=== PATIENT | female | born 1990 | race Two or more races ===

== ENCOUNTER 2023-01-21 10:30 | Observation (INO) | payer MEDICAID ==
[~2023-01-21] VITALS: Ht 172.7 cm; Wt 96.6 kg
[2023-01-21] MEDS ORDERED: PREN1TAB71 OR (10:51)
[2023-01-21] MEDS ORDERED: TERBUTALINE SULFATE 1 MG/ML 1ML VIAL SC SCH (11:30)
[2023-01-21] MEDS ORDERED: NITR-87 PO (13:07)
== END 2023-01-21 13:20 | disposition home or self-care (01) ==
LOC: UNDOADMOB 10:30 → LDRP 10:30 → UNDODISOB 13:20
PROVIDERS: ADMIT Obstetrics & Gynecology; ATTEND Obstetrics & Gynecology
DX: O23.43 Unspecified infection of urinary tract in pregnancy, third trimester (principal); O60.03 Preterm labor without delivery, third trimester; O36.8130 Decreased fetal movements, third trimester, not applicable or unspecified; O62.9 Abnormality of forces of labor, unspecified; O26.893 Other specified pregnancy related conditions, third trimester; R10.2 Pelvic and perineal pain; Z3A.36 36 weeks gestation of pregnancy
CPT/HCPCS: 59025; 76818; 81002; 96372; G0378; J3105

== ENCOUNTER 2023-01-30 13:50 | Observation (INO) | payer MEDICAID ==
[~2023-01-30] VITALS: Ht 172.7 cm; Wt 96.6 kg
[~2023-01-30 13:50] MED LIST: NITR-87 PO; PREN1TAB71 OR
== END 2023-01-30 14:53 | disposition home or self-care (01) ==
LOC: LDRP 13:50 → UNDOADMOB 13:50 → LDRP 14:05 → UNDODISOB 14:53
PROVIDERS: ADMIT Obstetrics & Gynecology; ATTEND Obstetrics & Gynecology
DX: O40.3XX0 Polyhydramnios, third trimester, not applicable or unspecified (principal); O36.63X0 Maternal care for excessive fetal growth, third trimester, not applicable or unspecified; Z3A.35 35 weeks gestation of pregnancy
CPT/HCPCS: 59025; 76818; 81002; 94760; G0378

== ENCOUNTER 2023-02-03 13:48 | Observation (INO) | payer MEDICAID ==
[~2023-02-03] VITALS: Ht 172.7 cm; Wt 96.6 kg
== END 2023-02-03 14:50 | disposition home or self-care (01) ==
LOC: LDRP 13:48 → UNDOADMOB 13:48 → LDRP 13:53 → UNDODISOB 14:50
PROVIDERS: ADMIT Obstetrics & Gynecology; ATTEND Obstetrics & Gynecology
DX: O36.63X0 Maternal care for excessive fetal growth, third trimester, not applicable or unspecified (principal); O40.3XX0 Polyhydramnios, third trimester, not applicable or unspecified; O26.893 Other specified pregnancy related conditions, third trimester; R10.30 Lower abdominal pain, unspecified; M54.9 Dorsalgia, unspecified; Z3A.35 35 weeks gestation of pregnancy
CPT/HCPCS: 59025; 76818; 81002; 94760; G0378

== ENCOUNTER 2023-02-06 15:38 | Observation (INO) | payer MEDICAID | END 2023-02-06 17:35 | disposition home or self-care (01) | LOC: LDRP 15:38 | PROVIDERS: ADMIT Obstetrics & Gynecology; ATTEND Obstetrics & Gynecology | DX: O40.3XX0 Polyhydramnios, third trimester, not applicable or unspecified (principal); O36.63X0 Maternal care for excessive fetal growth, third trimester, not applicable or unspecified; Z3A.36 36 weeks gestation of pregnancy | CPT/HCPCS: 59025; 76818; 81002; 94760; G0378 ==

== ENCOUNTER 2023-02-10 13:42 | Observation (INO) | payer MEDICAID ==
[~2023-02-10 13:42] MED LIST changes: -NITR-87 PO
== END 2023-02-10 15:38 | disposition home or self-care (01) ==
LOC: LDRP 13:42
PROVIDERS: ADMIT Obstetrics & Gynecology; ATTEND Obstetrics & Gynecology
DX: O40.3XX0 Polyhydramnios, third trimester, not applicable or unspecified (principal); O36.63X0 Maternal care for excessive fetal growth, third trimester, not applicable or unspecified; Z3A.36 36 weeks gestation of pregnancy
CPT/HCPCS: 59025; 76818; 81002; 82948; G0378

== ENCOUNTER 2023-02-17 14:10 | Observation (INO) | payer MEDICAID ==
[2023-02-17 16:03] LABS: Fern Testing Negative
== END 2023-02-17 17:02 | disposition home or self-care (01) ==
LOC: LDRP 14:10 → UNDOADMOB 14:10 → LDRP 14:22
PROVIDERS: ADMIT Obstetrics & Gynecology; ATTEND Obstetrics & Gynecology
DX: O26.893 Other specified pregnancy related conditions, third trimester (principal); R10.30 Lower abdominal pain, unspecified; Z3A.37 37 weeks gestation of pregnancy
CPT/HCPCS: 59025; 76818; 81002; 84112; 94760; G0378; Q0114

== ENCOUNTER 2023-02-26 04:47 | Inpatient (IN) | payer MEDICAID ==
[2023-02-24 17:02] LABS: Basophils # (auto) 0 10 ^3/uL (0-0.2); Basophils % (auto) 0.1 % (0.0-2.0); Eosinophils # (auto) 0.1 10 ^3/uL (0-0.8); Hematocrit 34.1 % (36.0-46.0); Hemoglobin 11.6 g/dL (12.2-16.2); Lymphocytes # (auto) 1.6 10 ^3/uL (0.4-5.4); Lymphocytes % (auto) 22.6 % (10.0-50.0); Mean Corpuscular Hemoglobin 30.8 pg (28.0-32.0); Mean Corpuscular Volume 90.7 fL (80.0-100.0); Monocytes # (auto) 0.6 10 ^3/uL (0-1.3); Monocytes % (auto) 7.7 % (0.0-12.0); Neutrophils % (auto) 68.6 % (37.0-80.0); Red Blood Cells 3.76 10^6/uL (4.0-5.20); Red Cell Distribution Width 14.1 % (11.8-14.3); White Blood Cell 7.3 10^3/uL (4.4-10.8)
[2023-02-24 17:06] LABS: Urine Bacteria FEW /hpf (None Seen); Urine Blood Negative /uL (Negative); Urine Clarity HAZY (Clear); Urine Mucus FEW (None Seen); Urine Protein, UAD Negative (Negative); Urine Urobilinogen Normal (Negative); Urine WBC 38 /hpf (0 - 5); Urine pH 6.5 (5.0-8.0)
[2023-02-24 17:07] LABS: Urine Color STRAW (Yellow)
[2023-02-24 17:11] LABS: Amphetamine Screen, Urine Neg (NEGATIVE)
[2023-02-24 17:12] LABS: Barbiturate Scree,Urine Neg (NEGATIVE); Benzodiazephine Screen, Urine Neg (NEGATIVE); Cannabinoid Screen, Urine Neg (NEGATIVE); Cocaine Screen, Urine Neg (NEGATIVE); Opiate Scree,Urine Neg (NEGATIVE); Phencyclidine Screen, Urine Neg (NEGATIVE)
[2023-02-24 17:14] LABS: Alanine Aminotransferase 16 U/L (7-40); Albumin 3.7 g/dL (3.2-4.8); Alkaline Phosphatase 108 U/L (46-116); Anion Gap 9 (5-15); Aspartate Aminotransferase 17 U/L (13-40); Bilirubin, Total 0.3 mg/dL (0.2-1.0); Blood Urea Nitrogen 7 mg/dL (9-23); Carbon Dioxide 22 mmol/L (20-30); Chloride 106 mmol/L (98-107); Glucose 111 mg/dL (74-106); Potassium 3.7 mmol/L (3.5-5.1); Sodium 137 mmol/L (136-145)
[2023-02-24 17:20] LABS: INR 0.9 (0.9-1.15); Partial Thromboplastin Time 25.6 SEC (24.5-34.5); Prothrombin Time 9.7 sec (9.3-11.8)
[~2023-02-26] VITALS: Ht 172.7 cm; Wt 92.5 kg
[2023-02-26] VITALS (14 sets, daily range): BP systolic 103–126; BP diastolic 59–87; PULSE 67–94; RESP 15–20; TEMP 97.7–98.6; O2SAT 95–100
[2023-02-26] MEDS ORDERED: ceFAZolin 2 GM/D5W100ml 100 ML IV ONE (05:15)
[2023-02-26] MEDS ORDERED: LACTATED RINGER'S 1,000 ML IV ONE (05:15)
[2023-02-26 08:06] LABS: RPR Non Reactive (Non Reactive)
[2023-02-26] MEDS ORDERED: TETRACAINE 1% INJ 2 ML VIAL IJ ONE (08:23)
[2023-02-26] MEDS ORDERED: MIDAZOLAM HCL 2MG/2ML 2ml VIAL (1mg/ml) ONE (08:53)
[2023-02-26] MEDS ORDERED: fentaNYL CITRATE 100 MCG/2 ML VL ONE (08:53)
[2023-02-26] MEDS ORDERED: oxyTOCIN 10 UNIT/ML 10ML VIAL ONE (08:54)
[2023-02-26] MEDS ORDERED: MORPHINE SULF PF 5 MG/10 ML VIAL ONE (08:54)
[2023-02-26] MEDS ORDERED: diphenhdrAMINE HCL 50 MG/1 ML VL IV PRN (10:15)
[2023-02-26] MEDS ORDERED: DexAMETHasone SOD PHOS 10MG/1ML VIAL INJ IV PRN (10:15)
[2023-02-26] MEDS ORDERED: MIDAZOLAM HCL 2MG/2ML 2ml VIAL (1mg/ml) IV PRN (10:15)
[2023-02-26] MEDS ORDERED: ONDANSETRON HCL 4 MG/2 ML VIAL IV PRN ×2 (10:15)
[2023-02-26] MEDS ORDERED: NALOXONE HCL 0.4 MG/ML VIAL IV PRN (10:15)
[2023-02-26] MEDS ORDERED: HYDROmorphone HCL 2 MG/ML VL/or syr IV PRN (10:15)
[2023-02-26] MEDS ORDERED: ePHEDrine SULFATE 50 MG/ML AMP IV PRN (10:15)
[2023-02-26] MEDS ORDERED: LABETALOL HCL 5 MG/ML 4ML SYRINGE IV PRN (10:15)
[2023-02-26] MEDS ORDERED: ACETAMINOPHEN IV 1000 MG/100ML (10MG/ML) IV PRN (11:45)
[2023-02-26] MEDS: LACTATED RINGER'S 1,000 ML IV SCH ×2 (13:22→22:37)
[2023-02-26] MEDS: ceFAZolin 1GM/50ML 50 ML IV SCH (16:50)
[2023-02-26] MEDS: KETOROLAC TROMETH 30 MG/ML 1ML VIAL IV PRN (16:54)
[2023-02-26] MEDS ORDERED: PREN1TAB71 PO (19:21)
[2023-02-26] MEDS ORDERED: IBUP-1455 PO (19:21)
[2023-02-26] MEDS ORDERED: DOCU-94 PO (19:21)
[2023-02-26] MEDS ORDERED: HYDR-4902 PO (19:21)
[2023-02-26 22:25] LABS: Basophils # (auto) 0 10 ^3/uL (0-0.2); Basophils % (auto) 0.2 % (0.0-2.0); Eosinophils # (auto) 0.1 10 ^3/uL (0-0.8); Eosinophils % (auto) 0.7 % (0.0-7.0); Hematocrit 27.1 % (36.0-46.0); Hemoglobin 9.3 g/dL (12.2-16.2); Lymphocytes # (auto) 1.1 10 ^3/uL (0.4-5.4); Lymphocytes % (auto) 14.7 % (10.0-50.0); Mean Corpuscular Hemoglobin 31.2 pg (28.0-32.0); Mean Corpuscular Hgb Conc. 34.2 g/dL (32.0-36.0); Mean Corpuscular Volume 91.3 fL (80.0-100.0); Monocytes # (auto) 0.5 10 ^3/uL (0-1.3); Monocytes % (auto) 6.6 % (0.0-12.0); Neutrophils # (auto) 5.8 10 ^3/uL (1.6-8.6); Neutrophils % (auto) 77.8 % (37.0-80.0); Red Blood Cells 2.97 10^6/uL (4.0-5.20); Red Cell Distribution Width 14.3 % (11.8-14.3); White Blood Cell 7.5 10^3/uL (4.4-10.8)
[2023-02-26] MEDS: ACETAMINOPHEN IV 1000 MG/100ML (10MG/ML) IV PRN (22:40)
[2023-02-27] VITALS (16 sets, daily range): BP systolic 100–145; BP diastolic 56–84; PULSE 82–110; RESP 16–20; TEMP 97.6–100.6; O2SAT 95–100
[2023-02-27] MEDS: ceFAZolin 1GM/50ML 50 ML IV SCH ×2 (00:44→10:23)
[2023-02-27] MEDS: KETOROLAC TROMETH 30 MG/ML 1ML VIAL IV PRN (02:20)
[2023-02-27 06:58] LABS: Basophils # (auto) 0 10 ^3/uL (0-0.2); Basophils % (auto) 0.2 % (0.0-2.0); Eosinophils # (auto) 0 10 ^3/uL (0-0.8); Eosinophils % (auto) 0.6 % (0.0-7.0); Hematocrit 28.8 % (36.0-46.0); Hemoglobin 9.7 g/dL (12.2-16.2); Lymphocytes # (auto) 0.6 10 ^3/uL (0.4-5.4); Lymphocytes % (auto) 9.2 % (10.0-50.0); Mean Corpuscular Hemoglobin 31.1 pg (28.0-32.0); Mean Corpuscular Hgb Conc. 33.8 g/dL (32.0-36.0); Mean Corpuscular Volume 92.1 fL (80.0-100.0); Monocytes # (auto) 0.5 10 ^3/uL (0-1.3); Monocytes % (auto) 7.1 % (0.0-12.0); Neutrophils # (auto) 5.3 10 ^3/uL (1.6-8.6); Neutrophils % (auto) 82.9 % (37.0-80.0); Red Blood Cells 3.13 10^6/uL (4.0-5.20); Red Cell Distribution Width 14.5 % (11.8-14.3); White Blood Cell 6.4 10^3/uL (4.4-10.8)
[2023-02-27] MEDS: ACETAMINOPHEN IV 1000 MG/100ML (10MG/ML) IV PRN (07:24)
[2023-02-27] MEDS ORDERED: HYDROcodone-ACET 5/325MG TAB PO PRN (07:30)
[2023-02-27] MEDS ORDERED: BISACODYL 10 MG RECT SUPP PR PRN (07:30)
[2023-02-27] MEDS: DOCUSATE CALCIUM 240 MG CAP PO SCH (10:15)
[2023-02-27] MEDS: DOCUSATE SOD 100 MG CAP PO SCH ×2 (10:15→21:34)
[2023-02-27] MEDS: SIMETHICONE 80 MG CHEWABLE TABLET PO SCH ×3 (11:35→21:34)
[2023-02-27] MEDS: HYDROcodone-ACET 5/325MG TAB PO PRN ×2 (13:48→17:48)
[2023-02-27] MEDS: IBUPROFEN 800 MG TAB PO PRN (17:36)
[2023-02-27 18:06] LABS: Treponema pallidum Ab (FTA-Ab) Non Reactive (Non Reactive)
[2023-02-27] MEDS: PIPERACILLIN-TAZOB 3.375GM 100 ML IV SCH (18:55)
[2023-02-28] MEDS: HYDROcodone-ACET 5/325MG TAB PO PRN ×3 (00:04→15:06)
[2023-02-28] MEDS: PIPERACILLIN-TAZOB 3.375GM 100 ML IV SCH ×2 (00:44→06:00)
[2023-02-28 03:10] VITALS: BP 112/72; PULSE 89; RESP 16; TEMP 98; O2SAT 96
[2023-02-28] MEDS: IBUPROFEN 800 MG TAB PO PRN (04:03)
[2023-02-28] MEDS: SIMETHICONE 80 MG CHEWABLE TABLET PO SCH ×2 (05:33→12:00)
[2023-02-28 07:07] VITALS: BP 118/68; PULSE 93; RESP 18; TEMP 98.5; O2SAT 95
[2023-02-28] MEDS: DOCUSATE CALCIUM 240 MG CAP PO SCH (09:32)
[2023-02-28] MEDS: DOCUSATE SOD 100 MG CAP PO SCH (09:32)
[2023-02-28 10:44] VITALS: BP 122/77; PULSE 88; RESP 18; TEMP 97.7; O2SAT 99
[2023-02-28 14:44] VITALS: BP 109/75; PULSE 87; RESP 17; TEMP 98.1; O2SAT 94
[2023-02-28 19:00] VITALS: BP 130/74; PULSE 86; RESP 16; TEMP 98.2; O2SAT 96
[2023-02-28 19:20] VITALS: BP 130/74; PULSE 86; RESP 16; TEMP 98.2; O2SAT 96
== END 2023-02-28 19:20 | disposition home or self-care (01) | DRG 539 ==
LOC: LDRP 04:47
PROVIDERS: ADMIT Obstetrics & Gynecology; ATTEND Obstetrics & Gynecology
PROC: 0UB70ZZ Excision of Bilateral Fallopian Tubes, Open Approach (ICD-10-PCS; 2023-02-26)
PROC: 10D00Z1 Extraction of Products of Conception, Low, Open Approach (ICD-10-PCS; principal; 2023-02-26 08:55)
DX: O36.63X0 Maternal care for excessive fetal growth, third trimester, not applicable or unspecified (principal); R71.0 Precipitous drop in hematocrit; Z30.2 Encounter for sterilization; Z37.0 Single live birth; Z3A.39 39 weeks gestation of pregnancy
CPT/HCPCS: 36415; 59025; 80053; 80307; 81001; 85025; 85610; 85730; 86592; 86850; 86900; 86901; 94760; 94762; 96360; 96361; 96365; 96366; 96374; 96375; G0378; J0131; J0690; J1885; J2250; J2405; J2543; J2590